=== PATIENT | male | born 1980 | race American Indian/Alaskan Native ===

== ENCOUNTER 2019-01-04 23:33 | Emergency (ER) | payer SELFPAY ==
[2019-01-05 00:41] LABS: Basophils % (Auto) 0.6 % (0.0-1.8); Eosinophils % (Auto) 0.1 % (0.0-4.3); Hematocrit 48.1 % (35.5-45.6); Hemoglobin 16.1 gm/dl (11.8-15.2); Lymphocytes # (Auto) 1.3 K/mm3 (1.2-5.4); Lymphocytes % (Auto) 16.5 % (13.4-35.0); Mean Corpuscular HGB Conc 34 % (32-34); Mean Corpuscular Volume 85 fl (84-94); Monocytes # (Auto) 0.6 K/mm3 (0.0-0.8); Monocytes % (Auto) 7.2 % (0.0-7.3); Platelet Count 220 K/mm3 (140-440); Red Blood Count 5.68 M/mm3 (3.65-5.03); Red Cell Distribution Width 13.1 % (13.2-15.2)
[2019-01-05] MEDS ORDERED: ZOFRAN IV ONE (00:48)
[2019-01-05] MEDS ORDERED: PEPCID IV ONE (00:48)
[2019-01-05] MEDS ORDERED: NACL 0.9% 1000 ML 1,000 ML IV ONE ×3 (00:49→01:39)
[2019-01-05] MEDS ORDERED: LIDOCAINE VISCOUS 2% PO ONE (00:49)
[2019-01-05] MEDS ORDERED: BENTYL PO ONE (00:49)
[2019-01-05] MEDS ORDERED: ALUM-MAG HYDROX-SIMETH 200-200-20MG/5ML PO ONE (00:49)
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
[2019-01-05 01:31] LABS: Alanine Aminotransferase 36 units/L (7-56); Albumin 5.1 g/dL (3.9-5)
[2019-01-05 01:32] LABS: Bilirubin,Direct < 0.2 mg/dL (0-0.2)
[2019-01-05] MEDS ORDERED: HumuLIN R IV ONE (01:40)
--- NOTE | 2019-01-05 05:58 | Emergency Department Report ---
ED Chest Pain HPI - General Chief Complaint: Chest Pain Stated Complaint: BLURRED VISION/CHEST HURTS/WEAK Time Seen by Provider: 01/05/19 00:35 Source: patient Mode of arrival: Ambulatory Limitations: No Limitations - History of Present Illness Initial Comments: Patient is a 38 yo AA male with a h/o HTN and NIDDM who presents to the ED with c/o acute onset persistent severe epigastric pain that radiates to substernal chest with sore throat for the last 5 days with nausea and vomiting. Patient states that the pain is burning and sharp and is worse with food. Patient states that he has not taken his diabetes medications for 1 week since he forgot what these medications at home away from where he stays now. Patient states that the pain and the nausea and vomiting have worsened in the last 2 days. Patient denies shortness of breath, diaphoresis, dizziness, palpitations, neck pain, headache, back pain, dysuria, fever and chills, urinary frequency and urgency, diarrhea, hematemesis, hematochezia or testicular pain. MD Complaint: chest pain, other (nausea, vomiting, epigastric pain) -: Sudden, days(s) (5) Onset: during rest, awoke with symptoms Pain Location: substernal, epigastric Pain Radiation: abdomen Severity: moderate Severity scale (0 -10): 6 Quality: aching, sharp, other (burning) Consistency: intermittent Improves With: nothing Worsens With: eating re: nausea, vomting. denies: diaphoresis, dyspnea, sense of impending doom Other Symptoms: acid taste in mouth. denies: cough, fever, syncope, rash, leg swelling, palpitations, burping, other Treatments Prior to Arrival: none Aspirin use within the Past 7 Days: (0) No - Related Data On Oral Contraceptives: No Previous Rx's Medication Instructions Recorded Last Taken Type Dicyclomine [Bentyl] 20 mg PO Q6H PRN #20 tablet 01/05/19 Unknown Rx Ondansetron [Zofran Odt] 4 mg PO Q6HR PRN #15 tab.rapdis 01/05/19 Unknown Rx glipiZIDE [Glucotrol] 5 mg PO Q12H #30 tablet 01/05/19 Unknown Rx metFORMIN [Glucophage] 500 mg PO Q12H #30 tablet 01/05/19 Unknown Rx raNITIdine HCl [Zantac] 150 mg PO Q12H #30 tablet 01/05/19 Unknown Rx Allergies Allergy/AdvReac Type Severity Reaction Status Date / Time No Known Allergies Allergy Unverified 01/05/19 00:13 Heart Score - HEART Score History: Slightly suspicious EKG: Normal Age: < 45 Risk factors: 1-2 risk factors Troponin: < normal limit HEART Score: 1 - Critical Actions Critical Actions: 0-3 pts:0.9-1.7%risk of adverse cardiac event.Candidate for discharge ED Review of Systems ROS: Stated complaint: BLURRED VISION/CHEST HURTS/WEAK Other details as noted in HPI Comment: All other systems reviewed and negative Constitutional: denies: chills, fever Eyes: denies: eye pain, eye discharge, vision change ENT: throat pain. denies: ear pain Respiratory: denies: cough, orthopnea, shortness of breath, SOB with exertion, SOB at rest, wheezing Cardiovascular: chest pain (substernal). denies: palpitations Endocrine: no symptoms reported Gastrointestinal: abdominal pain (epigastric), nausea, vomiting. denies: diarrhea, hematemesis, hematochezia Genitourinary: denies: urgency, dysuria Musculoskeletal: denies: back pain, joint swelling, arthralgia Skin: denies: rash, lesions Neurological: denies: headache, weakness, paresthesias Psychiatric: denies: anxiety, depression Hematological/Lymphatic: denies: easy bleeding, easy bruising ED Past Medical Hx - Past Medical History Previous Medical History?: Yes Hx Hypertension: Yes Hx Diabetes: Yes (Borderline) - Surgical History Past Surgical History?: No - Social History Smoking Status: Never Smoker Substance Use Type: None - Medications Home Medications: Home Medications Medication Instructions Recorded Confirmed Last Taken Type Dicyclomine [Bentyl] 20 mg PO Q6H PRN #20 tablet 01/05/19 Unknown Rx Ondansetron [Zofran Odt] 4 mg PO Q6HR PRN #15 tab.rapdis 01/05/19 Unknown Rx glipiZIDE [Glucotrol] 5 mg PO Q12H #30 tablet 01/05/19 Unknown Rx metFORMIN [Glucophage] 500 mg PO Q12H #30 tablet 01/05/19 Unknown Rx raNITIdine HCl [Zantac] 150 mg PO Q12H #30 tablet 01/05/19 Unknown Rx ED Physical Exam - General Limitations: No Limitations General appearance: alert, in no apparent distress - Head Head exam: Present: atraumatic, normocephalic, normal inspection - Eye Eye exam: Present: normal appearance, PERRL, EOMI. Absent: scleral icterus, conjunctival injection, nystagmus, periorbital swelling, periorbital tenderness - ENT ENT exam: Present: normal exam, normal orophraynx, mucous membranes moist, TM's normal bilaterally, normal external ear exam - Neck Neck exam: Present: normal inspection, full ROM. Absent: tenderness, lymphadenopathy - Respiratory Respiratory exam: Present: normal lung sounds bilaterally. Absent: respiratory distress, wheezes, rales, rhonchi, chest wall tenderness, prolonged expiratory - Cardiovascular Cardiovascular Exam: Present: regular rate, normal rhythm, normal heart sounds. Absent: systolic murmur, diastolic murmur, rubs, gallop - GI/Abdominal GI/Abdominal exam: Present: soft, tenderness (epigastric), normal bowel sounds. Absent: distended, hyperactive bowel sounds, hypoactive bowel sounds, organomegaly - Rectal Rectal exam: Present: deferred - Extremities Exam Extremities exam: Present: normal inspection, full ROM, normal capillary refill - Back Exam Back exam: Present: normal inspection, full ROM. Absent: tenderness, CVA tenderness (R), CVA tenderness (L), muscle spasm, paraspinal tenderness, vertebral tenderness - Neurological Exam Neurological exam: Present: alert, oriented X3, CN II-XII intact, normal gait, reflexes normal - Psychiatric Psychiatric exam: Present: normal affect, normal mood - Skin Skin exam: Present: warm, dry, intact, normal color. Absent: rash ED Course Vital Signs 01/04/19 23:38 Temperature 98.6 F Pulse Rate 96 H Respiratory 18 Rate Blood Pressure 146/109 O2 Sat by Pulse 96 Oximetry - Reevaluation(s) Reevaluation #1: 01/05/19 05:16 Patient is a 38-year-old male with a history of hypertension and hjt-zhqhfwj-xwrwoacok diabetes mellitus presented to the ED with epigastric pain, nausea, vomiting, chest pain and sore throat. In the ED, patient is alert and oriented 3 and is not in distress. Labs were drawn, EKG also performed, chest x-ray also ordered and patient was treated for nausea, vomiting and pain, as well as given antacids. The initial lab test results were reviewed and are significant for hyperglycemia of 683 mg/dL, hyponatremia on 131 mmol per liter and hyperkalemia of 5.8 mmol per liter, which was from a hemolyzed blood sample. The 2 sets of troponin levels was unremarkable. The anion gap was normal. Patient was treated in the ED with normal saline IV bolus 1 L 4, and insulin 15 units IV, and monitored. On reevaluation, patient felt better, final blood sugar was 185mg/dL. The patient's symptoms are likely due to hyperglycemia complicated by GERD. Patient was discharged home on prescription of metformin 500 mg twice a day and glipizide 5 mg twice a day which are his regular medications which he had not taken for one week. Patient was advised to follow- up with his primary care physician in 7-10 days for reevaluation or return to the ED immediately if symptoms get worse. ALEXYS score - Alexys Score Age > 65: (0) No Aspirin use within the Past 7 Days: (0) No 3 or more CAD Risk Factors: (0) No 2 or more Angina events in past 24 hrs: (0) No Known CAD with more than 50% Stenosis: (0) No Elevated Cardiac Markers: (0) No ST Deviation Greater than 0.5mm: (0) No ALEXYS Score: 0 ED Medical Decision Making - Lab Data Result diagrams: 01/05/19 00:23 01/05/19 00:23 - Radiology Data Radiology results: report reviewed, image reviewed Chest x-ray shows no acute cardiopulmonary abnormalities. - Medical Decision Making Patient is a 38-year-old male with a history of hypertension and ous-niolpeq-acfjlqotx diabetes mellitus presented to the ED with epigastric pain, nausea, vomiting, chest pain and sore throat. In the ED, patient is alert and oriented 3 and is not in distress. Labs were drawn, EKG also performed, chest x-ray also ordered and patient was treated for nausea, vomiting and pain, as well as given antacids. The initial lab test results were reviewed and are significant for hyperglycemia of 683 mg/dL, hyponatremia on 131 mmol per liter and hyperkalemia of 5.8 mmol per liter, which was from a hemolyzed blood sample. The 2 sets of troponin levels was unremarkable. The anion gap was normal. Patient was treated in the ED with normal saline IV bolus 1 L 4, and insulin 15 units IV, and monitored. On reevaluation, patient felt better, final blood sug ar was 185mg/dL. The patient's symptoms are likely due to hyperglycemia complicated by GERD. Patient was discharged home on prescription of metformin 500 mg twice a day and glipizide 5 mg twice a day which are his regular medications which he had not taken for one week. Patient was advised to follow- up with his primary care physician in 7-10 days for reevaluation or return to the ED immediately if symptoms get worse. - Differential Diagnosis Nonspecific chest pain, GERD; Nausea and vomiting, Hyperglycemia Critical care attestation.: If time is entered above; I have spent that time in minutes in the direct care of this critically ill patient, excluding procedure time. ED Disposition Clinical Impression: Acute chest wall pain, Nausea and vomiting in adult patient GERD (gastroesophageal reflux disease) Qualifiers: Esophagitis presence: without esophagitis Qualified Code(s): K21.9 - Gastro- esophageal reflux disease without esophagitis Hyperglycemia due to type 2 diabetes mellitus Qualifiers: Diabetes mellitus termite inspector insulin use: without termite inspector use Qualified Code(s): E11.65 - Type 2 diabetes mellitus with hyperglycemia Disposition: - TO HOME OR SELFCARE Is pt being admited?: No Does the pt Need Aspirin: No Condition: Stable Instructions: Chest Pain (ED), Diabetes Mellitus Type 2 in Adults (ED), Gastroesophageal Reflux Disease (ED), Acute Nausea and Vomiting (ED) Additional Instructions: Take medications with food, drink plenty of fluids and follow up with your prima ry care physician in 7-10 days for reevaluation. Return to the ED immediately if symptoms get worse. Prescriptions: Dicyclomine [Bentyl] 20 mg PO Q6H PRN #20 tablet PRN Reason: Pain , Severe (7-10) metFORMIN [Glucophage] 500 mg PO Q12H #30 tablet glipiZIDE [Glucotrol] 5 mg PO Q12H #30 tablet raNITIdine HCl [Zantac] 150 mg PO Q12H #30 tablet Ondansetron [Zofran Odt] 4 mg PO Q6HR PRN #15 tab.rapdis PRN Reason: Nausea Referrals: [facility] [Outside] - 3-5 Days Time of Disposition: 05:55 Print Language: DIVEHI
[2019-01-05 06:43] VITALS: BP 117/68
== END 2019-01-05 06:50 | disposition home or self-care (01) ==
LOC: ED 23:33
DX: K21.9 Gastro-esophageal reflux disease without esophagitis (principal); R07.89 Other chest pain; E11.65 Type 2 diabetes mellitus with hyperglycemia; I10 Essential (primary) hypertension; Z79.899 Other long term (current) drug therapy
CPT/HCPCS: 36415; 71046; 80048; 80076; 82962; 83690; 84484; 85025; 93005; 93010; 96361; 96374; 96375; 99284; J2405; J7030; J1815

== ENCOUNTER 2019-07-31 18:16 | Emergency (ER) | payer SELFPAY ==
--- NOTE | 2019-07-31 18:31 | Emergency Department Report ---
Blank Doc - Documentation Documentation: 39-year-old male that presents with blurry vision and generlized weeakness. Has not been taking DM medications. This initial assessment/diagnostic orders/clinical plan/treatment(s) is/are subject to change based on patient's health status, clinical progression and re-assessment by fellow clinical providers in the ED. Further treatment and workup at subsequent clinical providers discretion. Patient/guardians urged not to elope from the ED as their condition may be serious if not clinically assessed and managed. Initial orders include: 1- Patient sent to MAIN ED for further evaluation and treatment 2- labs 3- UA
[2019-07-31 18:54] LABS: Basophils % (Auto) 0.6 % (0.0-1.8); Eosinophils % (Auto) 0.7 % (0.0-4.3); Hematocrit 43.9 % (35.5-45.6); Hemoglobin 14.7 gm/dl (11.8-15.2); Lymphocytes # (Auto) 2.2 K/mm3 (1.2-5.4); Lymphocytes % (Auto) 40.5 % (13.4-35.0); Mean Corpuscular HGB Conc 33 % (32-34); Mean Corpuscular Volume 83 fl (84-94); Monocytes # (Auto) 0.3 K/mm3 (0.0-0.8); Monocytes % (Auto) 4.7 % (0.0-7.3); Platelet Count 260 K/mm3 (140-440); Red Blood Count 5.27 M/mm3 (3.65-5.03); Red Cell Distribution Width 13.2 % (13.2-15.2)
[2019-07-31 19:08] LABS: BUN/Creatinine Ratio 13; Blood Urea Nitrogen 13 mg/dL (9-20); Calcium 9.9 mg/dL (8.4-10.2); Hemolysis Index 13
[2019-07-31] MEDS ORDERED: SODIUM CHLORIDE 0.9% 1000 ML 1,000 ML IV ONE ×2 (22:25→22:26)
[2019-07-31] MEDS ORDERED: INSULIN REGULAR, HUMAN 100 UNITS/1 ML IV ONE (22:25)
--- NOTE | 2019-07-31 23:38 | Emergency Department Report ---
ED General Adult HPI - General Chief complaint: Hyperglycemia Stated complaint: DIABETIC AND VISION BLURR Time Seen by Provider: 07/31/19 18:29 Source: patient Mode of arrival: Ambulatory Limitations: No Limitations - History of Present Illness Initial comments: 39-year-old male with a past medical history of qyl-fhwdkhp-rdaadvjxn diabetes and hypertension presents to the hospital with complaints of blurry vision, increased thirst, and increased urinary frequency has been progressively worsening since running out of his diabetes medication about 2 weeks ago. Patient checked her sugar prior to arrival and it was high. Patient complains of some mild dysuria without fever, nausea, vomiting, abdominal pain, or shortness of breath. - Related Data Previous Rx's Medication Instructions Recorded Last Taken Type Dicyclomine [Bentyl] 20 mg PO Q6H PRN #20 tablet 01/05/19 Unknown Rx Ondansetron [Zofran Odt] 4 mg PO Q6HR PRN #15 tab.rapdis 01/05/19 Unknown Rx glipiZIDE [Glucotrol] 5 mg PO Q12H #30 tablet 01/05/19 Unknown Rx raNITIdine HCl [Zantac] 150 mg PO Q12H #30 tablet 01/05/19 Unknown Rx glipiZIDE [Glucotrol] 10 mg PO QDAY #30 tablet 07/31/19 Unknown Rx metFORMIN [Glucophage] 500 mg PO Q12H #30 tablet 07/31/19 Unknown Rx Allergies Allergy/AdvReac Type Severity Reaction Status Date / Time No Known Allergies Allergy Verified 07/31/19 18:21 ED Review of Systems ROS: Stated complaint: DIABETIC AND VISION BLURR Other details as noted in HPI Comment: All other systems reviewed and negative ED Past Medical Hx - Past Medical History Hx Hypertension: Yes Hx Diabetes: Yes - Social History Smoking Status: Current Every Day Smoker Substance Use Type: None - Medications Home Medications: Home Medications Medication Instructions Recorded Confirmed Last Taken Type Dicyclomine [Bentyl] 20 mg PO Q6H PRN #20 tablet 01/05/19 Unknown Rx Ondansetron [Zofran Odt] 4 mg PO Q6HR PRN #15 tab.rapdis 01/05/19 Unknown Rx glipiZIDE [Glucotrol] 5 mg PO Q12H #30 tablet 01/05/19 Unknown Rx raNITIdine HCl [Zantac] 150 mg PO Q12H #30 tablet 01/05/19 Unknown Rx glipiZIDE [Glucotrol] 10 mg PO QDAY #30 tablet 07/31/19 Unknown Rx metFORMIN [Glucophage] 500 mg PO Q12H #30 tablet 07/31/19 Unknown Rx ED Physical Exam - General Limitations: No Limitations - Other Other exam information: General: No acute distress Head: Atraumatic Eyes: normal appearance ENT: Dry mucous membranes Neck: Normal appearance, no midline tenderness Chest: Clear to auscultation bilaterally CV: Regular rate and rhythm Abdomen: Soft, normal bowel sounds, nontender, nondistended, no rebound or guarding Back: Normal inspection Extremity: Normal inspection, full range of motion Neuro: Alert O x 3, no facial asymmetry, speech clear, no gross motor sensory deficit Psych: Appropriate behavior Skin: No rash ED Course Vital Signs 07/31/19 08/01/19 08/01/19 18:29 01:37 01:38 Temperature 98.5 F Pulse Rate 64 61 Respiratory 20 16 16 Rate Blood Pressure 151/107 Blood Pressure 131/88 [Left] O2 Sat by Pulse 100 98 98 Oximetry ED Medical Decision Making - Lab Data Result diagrams: 07/31/19 18:37 07/31/19 18:37 Lab Results 07/31/19 07/31/19 07/31/19 Range/Units 18:36 18:37 18:37 WBC 5.4 (4.5-11.0) K/mm3 RBC 5.27 H (3.65-5.03) M/mm3 Hgb 14.7 (11.8-15.2) gm/dl Hct 43.9 (35.5-45.6) % MCV 83 L (84-94) fl MCH 28 (28-32) pg MCHC 33 (32-34) % RDW 13.2 (13.2-15.2) % Plt Count 260 (140-440) K/mm3 Lymph % (Auto) 40.5 H (13.4-35.0) % [place] % (Auto) 4.7 (0.0-7.3) % Eos % (Auto) 0.7 (0.0-4.3) % Baso % (Auto) 0.6 (0.0-1.8) % Lymph # 2.2 (1.2-5.4) K/mm3 [place] # 0.3 (0.0-0.8) K/mm3 Eos # 0.0 (0.0-0.4) K/mm3 Baso # 0.0 (0.0-0.1) K/mm3 Seg Neutrophils % 53.5 (40.0-70.0) % Seg Neutrophils # 2.9 (1.8-7.7) K/mm3 VBG pH (7.320-7.420) Sodium 134 L (137-145) mmol/L Potassium 4.8 (3.6-5.0) mmol/L Chloride 94.2 L (98-107) mmol/L Carbon Dioxide 25 (22-30) mmol/L Anion Gap 20 mmol/L BUN 13 (9-20) mg/dL Creatinine 1.0 (0.8-1.5) mg/dL Estimated GFR > 60 ml/min BUN/Creatinine Ratio 13 % Glucose 496 H (75-100) mg/dL POC Glucose 417 H (70-105) Calcium 9.9 (8.4-10.2) mg/dL Urine Color (Yellow) Urine Turbidity (Clear) Urine pH (5.0-7.0) Ur Specific [place] (1.003-1.030) Urine Protein (Negative) mg/dL Urine Glucose (UA) (Negative) mg/dL Urine Ketones (Negative) mg/dL Urine Blood (Negative) Urine Nitrite (Negative) Urine Bilirubin (Negative) Urine Urobilinogen (<2.0) mg/dL Ur Leukocyte Esterase (Negative) Urine WBC (Auto) (0.0-6.0) /HPF Urine RBC (Auto) (0.0-6.0) /HPF U Epithel Cells (Auto) (0-13.0) /HPF Urine Bacteria (Auto) (Negative) /HPF Urine Mucus /HPF 07/31/19 07/31/19 08/01/19 Range/Units 18:37 22:55 01:00 WBC (4.5-11.0) K/mm3 RBC (3.65-5.03) M/mm3 Hgb (11.8-15.2) gm/dl Hct (35.5-45.6) % MCV (84-94) fl MCH (28-32) pg MCHC (32-34) % RDW (13.2-15.2) % Plt Count (140-440) K/mm3 Lymph % (Auto) (13.4-35.0) % [place] % (Auto) (0.0-7.3) % Eos % (Auto) (0.0-4.3) % Baso % (Auto) (0.0-1.8) % Lymph # (1.2-5.4) K/mm3 [place] # (0.0-0.8) K/mm3 Eos # (0.0-0.4) K/mm3 Baso # (0.0-0.1) K/mm3 Seg Neutrophils % (40.0-70.0) % Seg Neutrophils # (1.8-7.7) K/mm3 VBG pH 7.347 (7.320-7.420) Sodium (137-145) mmol/L Potassium (3.6-5.0) mmol/L Chloride (98-107) mmol/L Carbon Dioxide (22-30) mmol/L Anion Gap mmol/L BUN (9-20) mg/dL Creatinine (0.8-1.5) mg/dL Estimated GFR ml/min BUN/Creatinine Ratio % Glucose (75-100) mg/dL POC Glucose 291 H (70-105) Calcium (8.4-10.2) mg/dL Urine Color Yellow (Yellow) Urine Turbidity Clear (Clear) Urine pH 5.0 (5.0-7.0) Ur Specific [place] 1.039 H (1.003-1.030) Urine Protein <15 mg/dl (Negative) mg/dL Urine Glucose (UA) >=500 (Negative) mg/dL Urine Ketones Neg (Negative) mg/dL Urine Blood Neg (Negative) Urine Nitrite Neg (Negative) Urine Bilirubin Neg (Negative) Urine Urobilinogen < 2.0 (<2.0) mg/dL Ur Leukocyte Esterase Neg (Negative) Urine WBC (Auto) 2.0 (0.0-6.0) /HPF Urine RBC (Auto) 5.0 (0.0-6.0) /HPF U Epithel Cells (Auto) 2.0 (0-13.0) /HPF Urine Bacteria (Auto) 1+ (Negative) /HPF Urine Mucus 2+ /HPF - Medical Decision Making Patient presents with hyperglycemia without signs and symptoms of DKA. Glucose improved prior to ED treatment with further reduction after insulin and normal saline. Patient plans on eating when he gets home therefore metformin provided prior to discharge. Patient provided the most recent dose of his diabetes medication and will receive a script x1 month. Outpatient follow-up encouraged for additional prescriptions and monitoring. - Differential Diagnosis DKA, hyperglycemia, infection, medication noncompliance Critical Care Time: No Critical care attestation.: If time is entered above; I have spent that time in minutes in the direct care of this critically ill patient, excluding procedure time. ED Disposition Clinical Impression: Hyperglycemia, Noncompliance with medication regimen Disposition: TO HOME OR SELFCARE Is pt being admited?: No Does the pt Need Aspirin: No Condition: Stable Instructions: Diabetic Hyperglycemia (ED) Additional Instructions: Take the medication as prescribed. Follow-up with your doctor or doctor/clinic provided. Return if symptoms worsen as indicated by your discharge instructio ns. Prescriptions: metFORMIN [Glucophage] 500 mg PO Q12H #30 tablet glipiZIDE [Glucotrol] 10 mg PO QDAY #30 tablet Referrals: CAMELIA SOUZA MD [Staff Physician] - 3-5 Days [facility] [Provider Group] - 3-5 Days Time of Disposition: 01:43
[2019-08-01] MEDS ORDERED: metFORMIN 500 MG TAB PO ONE (00:59)
[2019-08-01 01:27] LABS: Bacteria,Urine 1+ /HPF (Negative); Bilirubin,Urine NEG (Negative); Blood,Urine NEG (Negative); Color,Urine Yellow (Yellow); Mucus,Urine 2+ /HPF; Protein,Urine <15 mg/dL mg/dL (Negative); Urobilinogen,Urine < 2.0 mg/dL (<2.0)
[2019-08-01 01:38] VITALS: BP 131/88
== END 2019-08-01 02:00 | disposition home or self-care (01) ==
LOC: ED 18:16
DX: E11.65 Type 2 diabetes mellitus with hyperglycemia (principal); H53.8 Other visual disturbances; Z91.14 Patient's other noncompliance with medication regimen; I10 Essential (primary) hypertension; F17.200 Nicotine dependence, unspecified, uncomplicated; Z79.899 Other long term (current) drug therapy
CPT/HCPCS: 36415; 80048; 81001; 82805; 82962; 85025; 96361; 96374; 99283; J7030; J1815